=== PATIENT | male | born 1975 | race American Indian/Alaskan Native ===

== ENCOUNTER 2016-09-28 11:45 | Emergency (ER) | payer SELFPAY ==
[2016-09-28 12:38] LABS: Bacteria,Urine 1+ /HPF (Negative); Bilirubin,Urine NEG (Negative); Blood,Urine NEG (Negative); Ketones,Urine TR mg/dL (Negative); Leukocyte Esterase,Urine NEG (Negative); Nitrite,Urine NEG (Negative); Protein,Urine <15 mg/dL mg/dL (Negative); RBC,Urine < 1.0 /HPF (0.0-6.0); Urobilinogen,Urine < 2.0 mg/dL (<2.0); WBC,Urine < 1.0 /HPF (0.0-6.0)
--- NOTE | 2016-09-28 12:52 | Emergency Department Report ---
HPI - General Chief Complaint: Overdose Time Seen by Provider: 09/28/16 12:32 - HPI HPI: Room 18 The patient is a 40-year-old male presenting with a chief complaint of shaking. Per EMS they were called to the scene of possible seizure activity. EMS found the patient "in convulsions." The patient states he never lost consciousness just that he was "excited" while being while in [facility] [place]. The patient states she has not been to [place] a long time. The patient states this made his left arm shaking. Patient denies ever losing consciousness. the patient states he currently feels calm Location: [see above] Duration: [see above] Quality: "Shaking" Severity: [see above] Modifying factors: [see above] Context: [see above] Mode of transportation: [not driving] ED Past Medical Hx - Past Medical History Previous Medical History?: No - Surgical History Past Surgical History?: No - Family History Family history: no significant - Social History Smoking Status: Current Every Day Smoker (1/2 pack per day) Substance Use Type: Alcohol (12pk of beer daily, last consumed 09/26/2016), Marijuana - Medications Home Medications: Home Medications Medication Instructions Recorded Confirmed Last Taken Type hydrOXYzine PAMOATE [Vistaril] 50 mg PO Q6HR PRN #10 capsule 09/28/16 Unknown Rx ED Review of Systems ROS: Stated complaint: POSS OVERDOSE Other details as noted in HPI Comment: All other systems reviewed and negative Constitutional: denies: chills, fever Eyes: denies: eye pain, eye discharge, vision change ENT: denies: ear pain, throat pain Respiratory: denies: cough, shortness of breath, wheezing Cardiovascular: denies: chest pain, palpitations Endocrine: no symptoms reported Gastrointestinal: denies: abdominal pain, nausea, diarrhea Genitourinary: denies: urgency, dysuria Musculoskeletal: myalgia Skin: denies: rash, lesions Neurological: other (hospital seizure). denies: headache, weakness, paresthesias Psychiatric: denies: anxiety, depression Hematological/Lymphatic: denies: easy bleeding, easy bruising Physical Exam - Physical Exam Vital Signs: Vital Signs 09/28/16 09/28/16 09/28/16 11:56 12:00 12:05 Temperature 98.4 F Pulse Rate 67 71 87 Respiratory 11 L 17 18 Rate Blood Pressure 112/73 136/81 O2 Sat by Pulse 98 98 Oximetry 09/28/16 12:31 Temperature Pulse Rate 72 Respiratory 12 Rate Blood Pressure 112/73 O2 Sat by Pulse 98 Oximetry Physical Exam: GENERAL: The patient is well-developed well-nourished male lying on stretcher not appearing to be in acute distress. Patient has dirt and twigs in his hair from when he was presumably on the ground HEENT: Normocephalic. Atraumatic. Extraocular motions are intact. Patient has moist mucous membranes. NECK: Supple. No meningitic signs are noted. Trachea midline CHEST/LUNGS: Clear to auscultation. There is no respiratory distress noted. HEART/CARDIOVASCULAR: Regular. There is no tachycardia. There is no gallop rub or murmur. ABDOMEN: Abdomen is soft, nontender. Patient has normal bowel sounds. There is no abdominal distention. SKIN: There is no rash. There is no edema. There is no diaphoresis. NEURO: The patient is awake, alert, and oriented. The patient is cooperative. The patient has no focal neurologic deficits. The patient has normal speech. Cranial nerves II through XII grossly intact, no drift MUSCULOSKELETAL: There is no evidence of acute injury. ED Course Vital Signs 09/28/16 09/28/16 09/28/16 11:56 12:00 12:05 Temperature 98.4 F Pulse Rate 67 71 87 Respiratory 11 L 17 18 Rate Blood Pressure 112/73 136/81 O2 Sat by Pulse 98 98 Oximetry 09/28/16 12:31 Temperature Pulse Rate 72 Respiratory 12 Rate Blood Pressure 112/73 O2 Sat by Pulse 98 Oximetry - Consultations Consultation #1: 09/28/16 15:20 Case discussed with mental health quantitative consultant Tom-patient does not meet inpatient criteria. Will give outpatient referral ED Medical Decision Making - Lab Data Result diagrams: 09/28/16 12:43 09/28/16 12:43 Laboratory Tests 09/28/16 09/28/16 09/28/16 12:37 12:37 12:43 WBC 10.2 RBC 4.75 Hgb 13.8 Hct 42.3 MCV 89 MCH 29 MCHC 33 RDW 13.4 Plt Count 254 Lymph % (Auto) 12.3 L [place] % (Auto) 9.6 H Eos % (Auto) 0.1 Baso % (Auto) 0.3 Lymph # 1.3 [place] # 1.0 H Eos # 0.0 Baso # 0.0 Seg Neutrophils % 77.7 H Seg Neutrophils # 7.9 H Sodium Potassium Chloride Carbon Dioxide Anion Gap BUN Creatinine Estimated GFR BUN/Creatinine Ratio Glucose Calcium Total Bilirubin AST ALT Alkaline Phosphatase Total Creatine Kinase CK-MB (CK-2) CK-MB (CK-2) Rel Index Troponin T Total Protein Albumin Albumin/Globulin Ratio Urine Color Colorless Urine Turbidity Clear Urine pH 7.0 Ur Specific [place] 1.002 L Urine Protein <15 mg/dl Urine Glucose (UA) Neg Urine Ketones Tr Urine Blood Neg Urine Nitrite Neg Urine Bilirubin Neg Urine Urobilinogen < 2.0 Ur Leukocyte Esterase Neg Urine WBC (Auto) < 1.0 Urine RBC (Auto) < 1.0 Urine Bacteria (Auto) 1+ Salicylates Urine Opiates Screen Presumptive negative Urine Methadone Screen Presumptive negative Acetaminophen Ur Barbiturates Screen Presumptive negative Ur Phencyclidine Scrn Presumptive negative Ur Amphetamines Screen Presumptive negative U Benzodiazepines Scrn Presumptive negative Urine Cocaine Screen Presumptive negative U Marijuana (THC) Screen Presumptive positive Drugs of Abuse Note Disclamer Plasma/Serum Alcohol 09/28/16 09/28/16 09/28/16 12:43 12:43 12:43 WBC RBC Hgb Hct MCV MCH MCHC RDW Plt Count Lymph % (Auto) [place] % (Auto) Eos % (Auto) Baso % (Auto) Lymph # [place] # Eos # Baso # Seg Neutrophils % Seg Neutrophils # Sodium 139 Potassium 4.3 Chloride 100.1 Carbon Dioxide 28 Anion Gap 15 BUN 9 Creatinine 0.7 L Estimated GFR > 60 BUN/Creatinine Ratio 12.85 Glucose 101 H Calcium 9.9 Total Bilirubin 0.50 AST 20 ALT 16 Alkaline Phosphatase 94 Total Creatine Kinase CK-MB (CK-2) CK-MB (CK-2) Rel Index Troponin T Total Protein 6.9 Albumin 4.1 Albumin/Globulin Ratio 1.5 Urine Color Urine Turbidity Urine pH Ur Specific [place] Urine Protein Urine Glucose (UA) Urine Ketones Urine Blood Urine Nitrite Urine Bilirubin Urine Urobilinogen Ur Leukocyte Esterase Urine WBC (Auto) Urine RBC (Auto) Urine Bacteria (Auto) Salicylates < 0.3 L Urine Opiates Screen Urine Methadone Screen Acetaminophen < 15.0 Ur Barbiturates Screen Ur Phencyclidine Scrn Ur Amphetamines Screen U Benzodiazepines Scrn Urine Cocaine Screen U Marijuana (THC) Screen Drugs of Abuse Note Plasma/Serum Alcohol 09/28/16 09/28/16 12:43 12:43 WBC RBC Hgb Hct MCV MCH MCHC RDW Plt Count Lymph % (Auto) [place] % (Auto) Eos % (Auto) Baso % (Auto) Lymph # [place] # Eos # Baso # Seg Neutrophils % Seg Neutrophils # Sodium Potassium Chloride Carbon Dioxide Anion Gap BUN Creatinine Estimated GFR BUN/Creatinine Ratio Glucose Calcium Total Bilirubin AST ALT Alkaline Phosphatase Total Creatine Kinase 250 H CK-MB (CK-2) 3.7 CK-MB (CK-2) Rel Index 1.4 Troponin T < 0.010 Total Protein Albumin Albumin/Globulin Ratio Urine Color Urine Turbidity Urine pH Ur Specific [place] Urine Protein Urine Glucose (UA) Urine Ketones Urine Blood Urine Nitrite Urine Bilirubin Urine Urobilinogen Ur Leukocyte Esterase Urine WBC (Auto) Urine RBC (Auto) Urine Bacteria (Auto) Salicylates Urine Opiates Screen Urine Methadone Screen Acetaminophen Ur Barbiturates Screen Ur Phencyclidine Scrn Ur Amphetamines Screen U Benzodiazepines Scrn Urine Cocaine Screen U Marijuana (THC) Screen Drugs of Abuse Note Plasma/Serum Alcohol < 0.01 - EKG Data -: EKG Interpreted by Mt EKG shows normal: sinus rhythm Rate: normal - EKG Data When compared to previous EKG there are: previous EKG unavailable Interpretation: nonspecific ST-T wave yanira (T-wave inversion in lead 3) - Radiology Data Radiology results: report reviewed (CT head), image reviewed (CT head) CT head (read by radiologist)-no acute intracranial finding. - Differential Diagnosis seizure, syncope, anxiety Critical care attestation.: If time is entered above; I have spent that time in minutes in the direct care of this critically ill patient, excluding procedure time. ED Disposition Clinical Impression: Anxiety, Alcohol abuse Disposition: DISCHARGED TO HOME OR SELFCARE Is pt being admited?: No Does the pt Need Aspirin: No Condition: Stable Instructions: New-Onset Seizure in Adults (ED), Anxiety (ED), At-Risk Alcohol Use (ED), Abuse of Alcohol (ED) Additional Instructions: Return to the emergency department immediately should you develop worsening symptoms, fever, inability to tolerate food or liquid or any other concerns. Prescriptions: hydrOXYzine PAMOATE [Vistaril] 50 mg PO Q6HR PRN #10 capsule PRN Reason: Anxiety Referrals: PRIMARY CARE, [Primary Care Provider] - 3-5 Days JAVIER TADEO MD [Staff Physician] - 3-5 Days (Dr. Tadeo is a neurologist. Please follow up with him for further evaluation) [facility] [Outside] - 3-5 Days Time of Disposition: 15:21
[2016-09-28 13:07] LABS: Urine Drugs of Abuse Note Disclamer
[2016-09-28 13:20] LABS: Alanine Aminotransferase 16 units/L (7-56); Albumin 4.1 g/dL (3.9-5); Albumin/Globulin Ratio 1.5 %; Anion Gap 15 mmol/L; BUN/Creatinine Ratio 12.85; Blood Urea Nitrogen 9 mg/dL (9-20); Calcium 9.9 mg/dL (8.4-10.2); Carbon Dioxide 28 mmol/L (22-30); Chloride 100.1 mmol/L (98-107); Glucose 101 mg/dL (75-100); Potassium 4.3 mmol/L (3.6-5.0); Sodium 139 mmol/L (137-145); Total Protein 6.9 g/dL (6.3-8.2)
[2016-09-28 13:24] LABS: Basophils % (Auto) 0.3 % (0.0-1.8); Eosinophils % (Auto) 0.1 % (0.0-4.3); Hematocrit 42.3 % (35.5-45.6); Hemoglobin 13.8 gm/dl (11.8-15.2); Mean Corpuscular HGB Conc 33 % (32-34); Mean Corpuscular Hemoglobin 29 pg (28-32); Mean Corpuscular Volume 89 fl (84-94); Platelet Count 254 K/mm3 (140-440); Red Blood Count 4.75 M/mm3 (3.65-5.03); Red Cell Distribution Width 13.4 % (13.2-15.2); White Blood Count 10.2 K/mm3 (4.5-11.0)
[2016-09-28 13:32] LABS: Creatine Kinase MB 3.7 ng/mL (0.0-4.0)
[2016-09-28 13:33] LABS: Creatine Kinase 250 units/L (55-170)
[2016-09-28 14:49] LABS: Alkaline Phosphatase 94 units/L (35-129)
--- NOTE | 2016-09-28 14:50 | Cat Scan Report ---
FINAL REPORT EXAM: CT HEAD/BRAIN WO CON HISTORY: possible syncope/convulsions TECHNIQUE: Noncontrast CT scan of the brain. Axial images only. PRIORS: None. FINDINGS: Brain volume is normal for age. No hemorrhage, mass, mass effect, or midline shift. No hydrocephalus. No evidence of acute cortical infarct. No pathologic extra-axial fluid collection. No skull fracture seen. IMPRESSION: 1. No acute intracranial finding.
[2016-09-28 15:54] VITALS: BP 131/73
== END 2016-09-28 15:54 | disposition home or self-care (01) ==
LOC: ED 11:45
DX: F41.9 Anxiety disorder, unspecified (principal); F10.10 Alcohol abuse, uncomplicated; F17.200 Nicotine dependence, unspecified, uncomplicated
CPT/HCPCS: 36415; 70450; 80053; 80307; 81001; 82550; 82553; 84484; 85025; 93005; 93010; 99284; G0480; 80320

== ENCOUNTER 2016-09-29 01:58 | Emergency (ER) | payer SELFPAY ==
[2016-09-29 02:43] LABS: Basophils % (Auto) 0.3 % (0.0-1.8); Eosinophils % (Auto) 0.5 % (0.0-4.3); Hematocrit 42.5 % (35.5-45.6); Hemoglobin 14.5 gm/dl (11.8-15.2); Mean Corpuscular HGB Conc 34 % (32-34); Mean Corpuscular Hemoglobin 30 pg (28-32); Mean Corpuscular Volume 87 fl (84-94); Platelet Count 261 K/mm3 (140-440); Red Cell Distribution Width 13.3 % (13.2-15.2); White Blood Count 10.6 K/mm3 (4.5-11.0)
[2016-09-29 02:55] LABS: BUN/Creatinine Ratio 11.11; Blood Urea Nitrogen 10 mg/dL (9-20); Calcium 9.6 mg/dL (8.4-10.2); Carbon Dioxide 26 mmol/L (22-30); Chloride 98.8 mmol/L (98-107); Glucose 164 mg/dL (75-100); Sodium 137 mmol/L (137-145)
[2016-09-29 03:03] LABS: Anion Gap 17 mmol/L
[2016-09-29 04:33] LABS: Urine Drugs of Abuse Note Disclamer
[2016-09-29 04:48] LABS: Bilirubin,Urine NEG (Negative); Blood,Urine NEG (Negative); Ketones,Urine NEG (Negative); Leukocyte Esterase,Urine NEG (Negative); Mucus,Urine FEW /HPF; Nitrite,Urine NEG (Negative); Protein,Urine <15 mg/dL mg/dL (Negative); Urobilinogen,Urine < 2.0 mg/dL (<2.0)
--- NOTE | 2016-09-29 06:49 | Emergency Department Report ---
ED Psych HPI - General Chief Complaint: Psych Stated Complaint: MH EVAL Time Seen by Provider: 09/29/16 06:24 Source: patient, RN notes reviewed Mode of arrival: Ambulatory Limitations: No Limitations - History of Present Illness Initial Comments: 40-year-old male presents to the emergency department via EMS for mental health evaluation. Per report, the patient's family called EMS because he ran out of the house naked. Patient admits to smoking marijuana prior to this. He denies suicidal or homicidal thoughts. He denies visual or auditory hallucinations. Patient was seen in the emergency department yesterday for mental health evaluation and cleared for outpatient treatment. There are no other complaints. -: Gradual, During the night Associated Psychiatric Symptoms: none History of same: Yes Quality: resolved prior to arrival Improves With: none Worsens With: none Context: recent drug abuse Associated Symptoms: denies other symptoms Treatments Prior to Arrival: none - Related Data Previous Rx's Medication Instructions Recorded Last Taken Type hydrOXYzine PAMOATE [Vistaril] 50 mg PO Q6HR PRN #10 capsule 09/28/16 Unknown Rx Allergies Allergy/AdvReac Type Severity Reaction Status Date / Time No Known Allergies Allergy Unverified 09/28/16 12:05 ED Review of Systems ROS: Stated complaint: MH EVAL Other details as noted in HPI Comment: All other systems reviewed and negative Psychiatric: as per HPI. denies: auditory hallucinations, visual hallucinations , homicidal thoughts, suicidal thoughts ED Past Medical Hx - Past Medical History Previous Medical History?: Yes Hx Psychiatric Treatment: Yes (Anxiety) - Surgical History Past Surgical History?: No - Family History Family history: no significant - Social History Smoking Status: Current Every Day Smoker Substance Use Type: Alcohol, Marijuana - Medications Home Medications: Home Medications Medication Instructions Recorded Confirmed Last Taken Type hydrOXYzine PAMOATE [Vistaril] 50 mg PO Q6HR PRN #10 capsule 09/28/16 Unknown Rx ED Physical Exam - General Limitations: No Limitations General appearance: alert, in no apparent distress - Head Head exam: Present: atraumatic, normocephalic - Eye Eye exam: Present: normal appearance, PERRL, EOMI - ENT ENT exam: Present: normal exam, normal orophraynx, mucous membranes moist - Neck Neck exam: Present: normal inspection, full ROM. Absent: tenderness - Respiratory Respiratory exam: Present: normal lung sounds bilaterally. Absent: respiratory distress - Cardiovascular Cardiovascular Exam: Present: regular rate, normal rhythm, normal heart sounds - GI/Abdominal GI/Abdominal exam: Present: soft, normal bowel sounds. Absent: distended, tenderness - Extremities Exam Extremities exam: Present: normal inspection, full ROM. Absent: tenderness - Back Exam Back exam: Present: normal inspection, full ROM. Absent: tenderness - Neurological Exam Neurological exam: Present: alert, oriented X3. Absent: motor sensory deficit - Psychiatric Psychiatric exam: Present: normal mood, flat affect, other (Patient is slow to respond to questions, but answers appropriately. Patient seems distracted and appears to be responding to internal stimuli.). Absent: homicidal ideation, suicidal ideation - Skin Skin exam: Present: warm, dry, intact ED Course Vital Signs 09/29/16 02:05 Temperature 98.1 F Pulse Rate 88 Respiratory 18 Rate Blood Pressure 120/78 O2 Sat by Pulse 100 Oximetry ED Medical Decision Making - Lab Data Result diagrams: 09/29/16 02:14 09/29/16 02:14 - Medical Decision Making Lab results reviewed. Patient has been medically cleared patient is again attempting to run out of the emergency Department naked. Patient has been able to be redirected to the room. Form 1013 has been signed and placed in the patient's chart. Patient is awaiting mental health evaluation for inpatient placement. - Differential Diagnosis anxiety, drug abuse Critical care attestation.: If time is entered above; I have spent that time in minutes in the direct care of this critically ill patient, excluding procedure time. ED Disposition Clinical Impression: Drug abuse, Brief psychotic disorder Disposition: DC/TX PSY HOSP/PSY UNIT Is pt being admited?: No Condition: Stable Referrals: PRIMARY MD SOLANGE [Primary Care Provider] - 3-5 Days Time of Disposition: 07:04
--- NOTE | 2016-09-29 14:50 | Consultation ---
History of Present Illness - Reason for Consult Consult date: 09/29/16 Reason for consult: Mental Health Evaluation Requesting physician: MARIE SOLIS - Chief Complaint Chief complaint: "I want to leave" - History of Present Psychiatric Illness 40-year-old male presents to the emergency department via EMS for mental health evaluation. Per report, the patient's family called EMS because he ran out of the house naked. Today patient is calm, cooperative with a tangential thought process. Patient would only answer some questions asked of him. He did mention smoking "weed" prior to episode. Patient would look around the room when we were talking, possibly responding to external stimuli. I had to redirect him multiple times during these occurrences. He would not confirm or deny running out his home naked based on the ER note. Per the support staff, patient tried to leave the hospital by running towards the ER exit. Security had to be called to escort patient back into his assigned room. No gestures of SI/HI's and AVH's. Patient stated taking Risperdal and Cogentin in the past. Patient is observed wrapped up in multiple bed sheets. Medications and Allergies Allergies Allergy/AdvReac Type Severity Reaction Status Date / Time No Known Allergies Allergy Unverified 09/28/16 12:05 Home Medications Medication Instructions Recorded Confirmed Last Taken Type No Known Home Medications [No 09/29/16 09/29/16 Unknown History Reported Home Medications] Past psychiatric history - Past Medical History Past Medical History: No medical history Past Surgical History: No surgical history - past Psychiatric treatment and history Psych: Schizophrenia psychiatric treatment history: Inpatient to a "couple facilities". Patient denies fam psy hx. - Social History Social history: other (unable to obtain information) Mental Status Exam - Vital signs Last Vital Signs Temp 98.1 F 09/29/16 02:05 Pulse 88 09/29/16 02:05 Resp 18 09/29/16 02:05 BP 120/78 09/29/16 02:05 Pulse Ox 100 09/29/16 02:05 - Exam Narrative exam: ROS (+) psychosis, (+) delusional Appearance: disheveled, cooperative, calm Behavior: good eye contact Speech: slow with a low tone Mood: "I don't know" Affect: flat Thought Process: tangential Thought Content: denies SI/HI's and AVH's, paranoia Motor Activity: ambulatory Cognition: a/o x2 Insight: poor Judgment: poor Results Result Diagrams: 09/29/16 02:14 09/29/16 02:14 Abnormal lab results 09/29/16 09/29/16 Range/Units 02:14 02:14 [place] % (Auto) 9.7 H (0.0-7.3) % [place] # 1.0 H (0.0-0.8) K/mm3 Seg Neutrophils % 75.6 H (40.0-70.0) % Seg Neutrophils # 8.0 H (1.8-7.7) K/mm3 Glucose 164 H (75-100) mg/dL All other labs normal. Assessment and Plan Assessment and plan: Impression: Substance Induced Psychosis. 40-year-old male presents to the emergency department via EMS for mental health evaluation. Per report, the patient's family called EMS because he ran out of the house naked. Today patient is calm, cooperative with a tangential thought process. Patient would only answer some questions asked of him. He did mention smoking "weed" prior to this episode. Patient would look around the room when we were talking, possibly responding to external stimuli. No gestures of SI/HI's and AVH's. Patient positive for marijuana. DD: Schizophrenia, Unspecified Psychotic DO Recommendation/Plan: Continue 1013 with possible placement to inpatient psy services. Start Risperdal 2 mg PO HS for psychosis and Cogentin 0.5 mg PO HS for EPS prevention. Discussed with patient possible metabolic side effects of Risperdal.
[2016-09-29] MEDS: COGENTIN PO SCH (22:12)
[2016-09-29] MEDS: RisperDAL PO SCH (22:13)
[2016-09-29] MEDS ORDERED: WATER FOR INJ (PF) 10 ML ONE (22:16)
[2016-09-29] MEDS ORDERED: GEODON IM ONE (22:18)
--- NOTE | 2016-09-30 08:40 | Progress Note ---
Subjective - Reason for Consult Consult date: 09/30/16 Reason for consult: Psychiatry Follow-up - Chief Complaint Chief complaint: "Patient not speaking" 40-year-old male presents to the emergency department via EMS for mental health evaluation. Per report, the patient's family called EMS because he ran out of the house naked. Today patient would not speak to me. He would gesture that he wanted to leave by pointing toward the door of his room. Patient has some type of wound on his left wrist/hand. Per staff, patient tried to escape the secured room he is in currently. The patient have tried to leave the hospital multiple times on this admission. He is on 1013. No gestures of SI/HI's. Patient was observed mumbling to himself, possible responding to internal stimuli. Mental Status Exam - Vital signs Last Vital Signs Temp 98 F 09/30/16 06:59 Pulse 94 H 09/30/16 06:59 Resp 18 09/30/16 06:59 BP 146/82 09/30/16 06:59 Pulse Ox 99 09/30/16 06:59 - Exam Narrative exam: MSE: Appearance: uncooperative Behavior: poor eye contact Speech: slow with a low tone Mood: unable to assess Affect: flat Thought Process: unable to assess Thought Content: no gestures of SI/HI's and AVH's Motor Activity: ambulatory Cognition: alert to name Insight: limited Judgment: poor Assessment and Plan Impression: 40-year-old male presents to the emergency department via EMS for mental health evaluation. Per report, the patient's family called EMS because he ran out of the house naked. Today patient would not speak to me. He would gesture that he wanted to leave by pointing toward the door of his room. Patient have some type of wound on his left wrist/hand. No gestures of SI/HI's. Recommendation/Plan: Continue 1013 with pending placement to [facility]. Continue Risperdal 2 mg PO HS for psychosis and Cogentin 0.5 mg PO HS for EPS prevention. Discussed with patient possible metabolic side effects of Risperdal.
[2016-09-30] MEDS: COGENTIN PO SCH (23:39)
[2016-09-30] MEDS: RisperDAL PO SCH (23:39)
--- NOTE | 2016-10-01 11:31 | Progress Note ---
Subjective - Reason for Consult Consult date: 10/01/16 Reason for consult: psychiatric follow up - Chief Complaint Chief complaint: "Patient not speaking" 40-year-old male presents to the emergency department via EMS for mental health evaluation. Per report, the patient's family called EMS because he ran out of the house naked. Per staff, patient tried to escape the secured room he is in currently. The patient has attempted to elope from the hospital multiple times on this admission. He is on 1013. No gestures of SI/HI's. Patient was observed mumbling to himself, pacing, and responding to internal stimuli. Mental Status Exam - Vital signs Last Vital Signs Temp 98.2 F 10/01/16 08:37 Pulse 76 10/01/16 08:37 Resp 18 10/01/16 08:37 BP 158/91 10/01/16 08:37 Pulse Ox 99 10/01/16 08:37 - Exam Orientation: person Affect: agitated Mood: other (unknown) Thought content: other (unknown, responding to internal stimuli) Perceptions: other Speech: minimal response Concentration: unable to pay attention Motor activity: other (pacing) Level of consciousness: alert Memory: Intact Sleep Symptoms: Insomnia Appetite: decreased Interaction: other (indifferent) Assessment and Plan Impression: 40-year-old male presents to the emergency department via EMS for mental health evaluation. Per report, the patient's family called EMS because he ran out of the house naked. He was pacing the room on exam and responding to internal stimuli. He is not taking risperdal as ordered. Recommendation/Plan: Continue 1013 with pending placement to [facility]. Continue Risperdal 2 mg PO HS for psychosis and Cogentin 0.5 mg PO HS for EPS prevention and compliance encouraged.
[2016-10-01] MEDS: COGENTIN PO SCH (22:35)
[2016-10-01] MEDS: RisperDAL PO SCH (22:35)
--- NOTE | 2016-10-02 08:58 | Progress Note ---
Subjective - Reason for Consult Consult date: 10/02/16 Reason for consult: Psychiatry Follow-up - Chief Complaint Chief complaint: "Patient not speaking" 40-year-old male presents to the emergency department via EMS for mental health evaluation. Per report, the patient's family called EMS because he ran out of the house naked. Today patient would not answer questions, but followed the command to raise his upper/lower extremities. Per the staff editor, no behavior issues or distress overnight. No gestures of SI/HI's. Mental Status Exam - Vital signs Last Vital Signs Temp 98.4 F 10/01/16 20:47 Pulse 99 H 10/01/16 20:47 Resp 16 10/01/16 20:47 BP 145/104 10/01/16 20:47 Pulse Ox 98 10/01/16 20:47 - Exam Narrative exam: MSE: Appearance: uncooperative Behavior: poor eye contact Speech: unable to assess Mood: unable to assess Affect: flat Thought Process: unable to assess Thought Content: no gestures of SI/HI's and AVH's Motor Activity: lying down Cognition: alert to name Insight: limited Judgment: limited Assessment and Plan Impression: 40-year-old male presents to the emergency department via EMS for mental health evaluation. Per report, the patient's family called EMS because he ran out of the house naked. Today patient would not answer questions, but followed the command to raise his upper/lower extremities. No gestures of SI/HI' s. Recommendation/Plan: Continue 1013 with pending placement to [facility]. Continue Risperdal 2 mg PO HS for psychosis and Cogentin 0.5 mg PO HS for EPS prevention and compliance encouraged.
[2016-10-02] MEDS: COGENTIN PO SCH (23:24)
[2016-10-02] MEDS: RisperDAL PO SCH (23:25)
--- NOTE | 2016-10-03 12:01 | Progress Note ---
Subjective - Reason for Consult Consult date: 10/03/16 Reason for consult: psychiatric follow up - Chief Complaint Chief complaint: "Patient not speaking" 40-year-old male presents to the emergency department via EMS for mental health evaluation. Per report, the patient's family called EMS because he ran out of the house naked. Today patient would not answer questions. He was sitting on the floor with his eyes closed. Staff report he intermittently cries or yells. He is drinking fluids but did not eat breakfast this am. He took risperdal and cogentin the past 2 nights. Mental Status Exam - Vital signs Last Vital Signs Temp 98.4 F 10/02/16 22:09 Pulse 78 10/02/16 22:09 Resp 22 10/03/16 10:01 BP 153/89 10/02/16 22:09 Pulse Ox 100 10/03/16 10:01 - Exam Narrative exam: MSE: Appearance: uncooperative Behavior: no eye contact Speech: unable to assess Mood: unable to assess Affect: flat Thought Process: unable to assess Thought Content: unable to assess Motor Activity: lying down Cognition: unable to assess Insight: impaired Judgment: impaired Assessment and Plan Impression: 40-year-old male presents to the emergency department via EMS for mental health evaluation. Per report, the patient's family called EMS because he ran out of the house naked. He remains psychotic. He has been taking Risperdal as ordered for the last 2 nights. Recommendation/Plan: Continue 1013 with pending transport to [facility]. Continue Risperdal 2 mg PO HS for psychosis and Cogentin 0.5 mg PO HS for EPS prevention and compliance encouraged.
[2016-10-03] MEDS: RisperDAL PO SCH (22:07)
[2016-10-03] MEDS: COGENTIN PO SCH (22:08)
--- NOTE | 2016-10-04 11:33 | Progress Note ---
Subjective - Reason for Consult Reason for consult: reevaulate for inpatient hospitalization - Chief Complaint Chief complaint: "Patient not speaking" 40-year-old male presents to the emergency department via EMS for mental health evaluation. Per report, the patient's family called EMS because he ran out of the house naked. Today patient would not answer questions. He was sitting on the floor with his eyes closed. Staff report he intermittently cries or yells. He is drinking fluids but did not eat breakfast this am. He took risperdal and cogentin the past 2 nights. Mental Status Exam - Vital signs Last Vital Signs Temp 98.6 F 10/03/16 22:00 Pulse 88 10/03/16 22:00 Resp 20 10/04/16 10:41 BP 138/88 10/03/16 22:00 Pulse Ox 100 10/04/16 10:41 Assessment and Plan Patient remains nonverbal and continues to have posturing. Per collateral information patient has been engaging in oral intake of solids and liquids. I have informed the nursing staff to continue to encourage oral fluid intake to prevent dehydration. General Appearance: A hospital gown, in acute distress Sensorium/Consciousness: Reduced responsiveness to the external environment Orientation: Not oriented Eye Contact: Minimal Attitude / Behavior: Guarded not well related Psychomotor & Musculoskeletal Activity: Psychomotor retardation noted, posturing Mood: Did not report Affect: Flat Speech / Language: Mute Thought Processes: Cannot assess Thought Content: Cannot assess Perception: Cannot assess Insight: Poor Judgement: Poor Capacity for ADLs: Not independent Plan: - add lorazepam 1 mg po tid to address possible catatonia
[2016-10-04] MEDS: ATIVAN PO SCH ×2 (14:41→23:00)
[2016-10-04] MEDS: COGENTIN PO SCH (23:00)
[2016-10-04] MEDS: RisperDAL PO SCH (23:05)
[2016-10-05] MEDS: ATIVAN PO SCH ×2 (08:06→14:30)
--- NOTE | 2016-10-05 08:23 | Progress Note ---
Subjective - Reason for Consult Consult date: 10/05/16 Reason for consult: Psychiatry Follow-up - Chief Complaint Chief complaint: "Patient not speaking" 40-year-old male presents to the emergency department via EMS for mental health evaluation. Per report, the patient's family called EMS because he ran out of the house naked. Today patient is in restraints because he removed padding from the wall in the seclusion room. On assessment, patient would not speak to me. Patient took his psy medication last night. Mental Status Exam - Vital signs Last Vital Signs Temp 98.2 F 10/04/16 22:00 Pulse 74 10/04/16 22:00 Resp 16 10/04/16 22:00 BP 132/67 10/04/16 22:00 Pulse Ox 100 10/04/16 22:00 Assessment and Plan Impression: 40-year-old male presents to the emergency department via EMS for mental health evaluation. Per report, the patient's family called EMS because he ran out of the house naked. Today patient is in restraints because he removed padding from the wall in the seclusion room. Recommendation/Plan: Continue 1013 with pending placement to [facility]. Continue Risperdal 2 mg PO HS for psychosis, Cogentin 0.5 mg PO HS for EPS prevention, and Ativan 1 mg PO TID for possible catatonia. Continue to encourage patient to drink fluids to prevent dehydration. Monitor patients vitals signs.
[2016-10-05 09:54] VITALS: BP 154/85
== END 2016-10-05 21:02 ==
LOC: EEVIPCON 01:58 → ED 01:58
DX: F29 Unspecified psychosis not due to a substance or known physiological condition (principal); F12.10 Cannabis abuse, uncomplicated; F17.200 Nicotine dependence, unspecified, uncomplicated
CPT/HCPCS: 36415; 80048; 80307; 81001; 85025; 96372; 99285; G0480; J3486; 80320